=== PATIENT | male | born 1990 | race Caucasian/White ===

== ENCOUNTER 2020-05-24 07:33 | Day surgery (SDC) | payer BC ==
[~2020-05-24] VITALS: Ht 182.9 cm; Wt 107.1 kg
[~2020-05-24 07:33] MED LIST: BUPR150T2; LORA1 PO; Prozac20 MG PO
--- NOTE | 2020-05-24 08:20 | NUR ---
05/24/20 0820 Ana Maria Diaz PER PT, NEEDLE POKES CAUSE "VASOVAGAL RESPONSE". IV STARTED IN R AC. PT BECAME PALE AND DIAPHORETIC, BP 88/53, HEART RATE 68. IV FLUID BOLUS INFUSING, PT IN TRENDELENBERG POSITION. BP UP TO 93/52, HR 72. PT STATES HE IS FEELING BETTER. BP 104/59, HR 72. WILL CONTINUE TO MONITOR. DR. ELAM NOTIFIED. 200 ML LR BOLUS GIVEN.
== END 2020-05-24 09:36 | disposition home or self-care (01) ==
LOC: ORSCSDS 07:33
DX: K62.5 Hemorrhage of anus and rectum (principal); R19.7 Diarrhea, unspecified; R19.4 Change in bowel habit; K63.5 Polyp of colon; F41.8 Other specified anxiety disorders; K64.8 Other hemorrhoids; Z79.899 Other long term (current) drug therapy
CPT/HCPCS: 88305; J2250; J2704; J7120

== ENCOUNTER → 2020-11-08 | Outpatient (CLI) | payer BC | END | disposition home or self-care (01) | LOC: LAB 10:30 → LAB SHORT 10:30 | DX: J02.9 Acute pharyngitis, unspecified (principal) | CPT/HCPCS: 87081 ==